=== PATIENT | female | born 2000 | race Caucasian/White ===

== ENCOUNTER → 2022-03-04 | Outpatient (CLI) | payer OTHER ==
[2022-03-04 16:56] LABS: BASO % 0.4 % (0.0-1.0); HEMATOCRIT 44.8 % (36.0-47.0); HEMOGLOBIN 14.4 g/dl (12.0-15.5); LYMPH # 1.2 10^3/uL (1.5-5.0); LYMPH % 14.6 % (24.0-44.0); MEAN CORPUSCULAR HEMOGLOBIN 27.7 pg (27.0-33.0); MEAN CORPUSCULAR HGB CONC 32.1 g/dl (32.0-36.5); MEAN CORPUSCULAR VOLUME 86.3 fl (80.0-96.0); MONO # 0.3 10^3/uL (0.0-0.8); MONO % 3.9 % (2.0-8.0); NEUTROPHILS # 6.7 10^3/uL (1.5-8.5); NEUTROPHILS % 80.7 % (36.0-66.0); PLATELET COUNT, AUTOMATED 289 10^3/uL (150-450); RED BLOOD COUNT 5.19 10^6/uL (4.00-5.40); WHITE BLOOD COUNT 8.3 10^3/uL (4.0-10.0)
[2022-03-04 17:41] LABS: HCG, SERUM QUALITATIVE NEGATIVE (NEGATIVE)
[2022-03-04 18:04] LABS: ALBUMIN 4.4 G/DL (3.2-5.2); ALT/SGPT 28 U/L (7.0-40); BILIRUBIN,TOTAL 0.3 MG/DL (0.3-1.2); BLOOD UREA NITROGEN 16 MG/DL (9-23); CALCIUM LEVEL 9.5 MG/DL (8.5-10.1); CARBON DIOXIDE LEVEL 24 MMOL/L (20-31); CHLORIDE LEVEL 104 MMOL/L (98-107); FOLLICLE STIMULATING HORMONE 7.4 mIU/ML; FREE T4 1.15 NG/DL (0.89-1.76); GLOMERULAR FILTRATION RATE > 60.0 (>60); GLUCOSE, FASTING 105 MG/DL (60-100); GLUCOSE,RANDOM 105 MG/DL (LESS THAN 200); LUTEINIZING HORMONE 15.5 mIU/ML; POTASSIUM SERUM 5.1 MMOL/L (3.5-5.1); PROGESTERONE 0.32 NG/ML; PROLACTIN 4.89 NG/ML; SODIUM LEVEL 137 MMOL/L (136-145); TESTOSTERONE 32 NG/DL (14-76); THYROID STIMULATING HORMONE 0.109 uIU/ML (0.55-4.78); TOTAL 25(OH) VITAMIN D 19.3 NG/ML (20.0-100.0); TOTAL PROTEIN 7.6 G/DL (5.7-8.2)
[2022-03-04 19:08] LABS: HEMOGLOBIN A1c 5.2 % (4.0-6.0)
== END ==
LOC: M LAB 15:37
PROVIDERS: ATTEND Obstetrics & Gynecology
DX: N97.9 Female infertility, unspecified (principal)

== ENCOUNTER → 2022-04-03 | Outpatient (CLI) | payer OTHER | LOC: M LAB 14:15 | PROVIDERS: ATTEND Obstetrics & Gynecology | DX: N97.9 Female infertility, unspecified (principal) ==

== ENCOUNTER → 2022-05-04 | Outpatient (CLI) | payer OTHER ==
[2022-05-04 16:36] LABS: HCG, SERUM QUANTITATIVE < 2.6 MIU/ML (<4.2)
[2022-05-04 16:41] LABS: PROGESTERONE 0.44 NG/ML
== END ==
LOC: M LAB 15:26
PROVIDERS: ATTEND Obstetrics & Gynecology
DX: N97.9 Female infertility, unspecified (principal); N91.2 Amenorrhea, unspecified